=== PATIENT | female | born 1965 | race Caucasian/White ===

== ENCOUNTER → 2017-02-22 | Outpatient (CLI) | payer OTHER | LOC: FIMAGING 11:59 | PROVIDERS: ATTEND Family Medicine | DX: Z12.31 Encounter for screening mammogram for malignant neoplasm of breast (principal) | CPT/HCPCS: G0202 ==

== ENCOUNTER 2017-04-25 13:22 | Emergency (ER) | payer OTHER ==
[2017-04-25 13:28] VITALS: TEMP 97.9
--- NOTE | 2017-04-25 14:10 | CPEKG ---
Heart Rate: 93 RR Interval: 645 P-R Interval: 132 QRSD Interval: 70 QT Interval: 340 QTC Interval: 423 P Cornelius: 70 QRS Cornelius: 51 T Wave Cornelius: 33 EKG Severity - NORMAL ECG - EKG Impression: SINUS RHYTHM Electronically Signed By: Gaurav Mcdonald 26-Apr-2017 00:13:57
[2017-04-25 14:59] VITALS: RESP 16
--- NOTE | 2017-04-25 15:12 | EDPHY ---
H & P Stated Complaint: Elevated heart rate for 4 hours. Time Seen by Provider: 04/25/17 15:09 HPI/ROS: CHIEF COMPLAINT: Palpitations HISTORY OF PRESENT ILLNESS: The patient presents the emergency department with palpitations characterized as a tachycardia which occurred while at rest at a meeting. The patient reportedly went to a grocery store and had her blood pressure checked on a machine and reportedly had a heart rate of 187. Patient reports she tried to measure her own heart rate however was unable to because it was beating too fast. The patient's symptoms have since resolved. She denies any shortness of breath, pleuritic chest pain, prior history of arrhythmia. The patient takes no medications. She denies excessive stimulant use or other acute complaints. REVIEW OF SYSTEMS: A comprehensive 10 point review of systems is otherwise negative aside from elements mentioned in the history of present illness. Source: Patient Exam Limitations: No limitations - Personal History LMP (Females 10-55): 1-7 Days Ago Current Tetanus Diphtheria and Acellular Pertussis (TDAP): Yes - Medical/Surgical History Hx Asthma: No Hx Chronic Respiratory Disease: No Hx Diabetes: No Hx Cardiac Disease: No Hx Renal Disease: No Hx Cirrhosis: No Hx Alcoholism: No Hx HIV/AIDS: No Hx Splenectomy or Spleen Trauma: No Other PMH: Denies - Social History Smoking Status: Never smoked - Physical Exam Exam: General Appearance: Alert, no distress Eyes: Pupils equal and round no pallor or injection ENT, Mouth: Mucous membranes moist Respiratory: There are no retractions, lungs are clear to auscultation Cardiovascular: Regular rate and rhythm Gastrointestinal: Abdomen is soft and nontender, no masses, bowel sounds normal Neurological: A&O, normal motor function, normal sensory exam, normal cranial nerves Skin: Warm and dry, no rashes Musculoskeletal: Neck is supple nontender Extremities: symmetrical, full range of motion Constitutional: Initial Vital Signs Temperature (C) 36.6 C 04/25/17 13:23 Heart Rate 113 H 04/25/17 13:23 Respiratory Rate 18 04/25/17 13:23 Blood Pressure 122/89 H 04/25/17 13:23 O2 Sat (%) 100 04/25/17 13:23 O2 Delivery Mode Room Air Allergies/Adverse Reactions: enviromental Allergy (Uncoded 04/25/17 13:28) Home Medications: Medication Instructions Recorded NK [No Known Home Meds] 04/25/17 Medical Decision Making - Diagnostics EKG Interpretation: EKG: Complete interpretation has been separately recorded in the [employer] archive. Summary impression: Sinus rhythm, rate 93 ED Course/Re-evaluation: The patient was placed on a threat monitoring analyst and observed for an hour and half without any obvious arrhythmia. I reviewed the patient's past medical records and see that she had a normal TSH performed within the past several weeks. The patient did have an indeterminately elevated troponin of 0.07. The patient did undergo an echocardiogram which demonstrated no obvious structural abnormality. This was reviewed and discussed with Dr. Sanchez Sandoval from Cardiology. Dr. Sandoval did evaluate the patient in the emergency department is recommend discharge to home. The patient did undergo serial examinations in the emergency department. She has no evidence of anemia or metabolic dysfunction. Her D-dimer is negative which I feel adequately excludes pulmonary embolism. The patient will follow up with Dr. Sandoval tomorrow an outpatient for a Holter monitor. She is discharged home with customary aftercare instructions and return precautions. Differential Diagnosis: Differential diagnosis considered includes acute coronary syndrome, dehydration , metabolic abnormality, SVT, atrial fibrillation - Data Points Laboratory Results: 04/25/17 04/25/17 14:50 14:50 D-Dimer 0.46 ug/mLFEU ug/mLFEU (0.00-0.50) Troponin I 0.070 ng/mL H ng/mL (0.000-0.034) Departure - Departure Disposition: Home, Routine, Self-Care Clinical Impression: Palpitations Condition: Good Instructions: Heart Palpitations (ED) Additional Instructions: 1. Please follow up with Cardiology for a follow-up visit. 2. Return to the ED for recurrent palpitations, chest pain, difficulty breathing or other concerns. Referrals: Sanchez Sandoval MD [Medical Doctor] - As per Instructions
--- NOTE | 2017-04-25 16:48 | ECHO ---
[email or web address] [address] [address]: [phone] Fax: Transthoracic Echocardiogram Name: LISBET HOUSTON MR#: [id number] Study Date: 04/25/2017 Study Time: 03:59 PM Date of : 1965 Age: 52 year(s) Height: 157.5 cm (62 in.) Weight: 52.16 kg (115 lb.) BSA: 1.51 m2 Gender: Female Examination: Echo Indication: palpitations with indeterminately elevated troponin Image Quality: Adequate Contrast: Requested by: Gaurav Mcdonald BP: 132 mmHg/104 mmHg Heart Rate: 88 bpm Rhythm: Normal sinus rhythm Indication: palpitations with indeterminately elevated troponin Procedure Staff Animal Nutrition Teacher: Alice Bush [facility] Reading Physician: Sanchez Sandoval MD Requesting Provider: Conclusions: No pericardial effusion. Normal left ventricular systolic function. No regional wall motion abnormalities. No Doppler or 2D evidence of significant valvular heart disease. Measurements: Chambers Valvular Assessment AV/MV Valvular Assessment TV/PV Normal Normal Normal Name Value Range Name Value Range Name Value Range Ao Manisha (MM): 2.2 cm (2.2 cm-3.7 AV Vmax: 1.32 m/s (1 m/s-1.7 PV Vmax: 0.73 m/s (0.6 m/s-0.9 cm) m/s) m/s) IVSd (2D): 0.7 cm (0.6 cm-1.1 AV maxP mmHg ( - ) PV PGmax: 2 mmHg ( - ) cm) LVOT Vmax: 0.86 m/s (0.7 m/s-1.1 LVDd (2D): 3.4 cm (3.9 cm-5.3 m/s) cm) MV E Vmax: 0.57 m/s ( - ) LVDs (2D): 1.9 cm (2.1 cm-4 MV A Vmax: 0.41 m/s ( - ) cm) MV E/A: 1.39 ( - ) LVPWd (2D): 0.7 cm ( - ) LVEF (BP): 63 % (>=55 %) RVDd(2D): 2.9 cm (1.9 cm-3.8 cmmm) Continued Measurements: Chambers Valvular Assessment AV/MV Name Value Name Value LADs Lon.5 cm MV DecTime: 232 m/s LA Area: 12.5 cm2 MV E/E' Septal: 5.60 TAPSE: 1.7 cm MV E/E' Lateral: 4.30 Additional Vessels Patient: LISBET HOUSTON Study Date: 04/25/2017 Page 1 of 2 03:59 PM Name Value Ao Ascendin.7 cm Findings: Left Ventricle: Normal size left ventricle. No LV hypertrophy. Normal global systolic LV function. EF is 63 %. No regional wall motion abnormality. Normal diastolic LV function. Right Ventricle: Normal size right ventricle. Normal RV function. Left Atrium: The left atrium is normal in size. Right Atrium: The right atrium is normal in size. Mitral Valve: The mitral valve is normal in appearance and function. There is no mitral valve regurgitation. No mitral stenosis is present. Aortic Valve: The aortic valve is normal in appearance and function. There is no aortic valve regurgitation. No aortic valve stenosis is present. Tricuspid Valve: The tricuspid valve is normal in appearance and function. There is no tricuspid valve regurgitation. Pulmonary artery pressure is not obtained due to inadequate TR jet. Pulmonic Valve: Pulmonary valve not well visualized. There is no pulmonic regurgitation seen. Aorta: The aorta is normal. Normal size aortic root measuring 2.2 cm. Normal size ascending aorta measuring 2.7 cm. IVC: The IVC is normal sized. Pericardium: Trivial pericardial effusion. (No Signature Object) Patient: LISBET HOUSTON Study Date: 04/25/2017 Page 2 of 2 03:59 PM [id number]
[2017-04-25 17:09] VITALS: BP 146/96; PULSE 81; O2SAT 96
--- NOTE | 2017-04-25 17:30 | PDCONSULT ---
Cardiology Consult Reason for Consult: Palpitations Chief Complaint: Palpitations Requesting Physician: Tamara History of Present Illness: 52-year-old female no prior cardiovascular history in her usual state of good health today she was at a meeting. She developed the acute onset of palpitations. They are not associated with syncope or near syncope. She went to her primary care doctor's office who advised her to go to the emergency department. She went to a [facility] where she put a blood pressure cuff on and the device read her heart rate is 180+. She finally came to the emergency department by the time she got here heart rate slowed down. She has been observed without further dysrhythmia. She had no chest pain, PND, orthopnea. She had no syncope. She had no near syncope. Over the last 24 hours she has had a little more alcohol than usual with 3 cocktails last evening. No significant caffeine use. She takes no medications really She has otherwise been healthy with may be a mild fever but no chills, cough, abdominal pain, diarrhea, constipation. Laboratory Tests 04/25/17 04/25/17 14:50 14:50 D-Dimer 0.46 Troponin I 0.070 H Medications: None Allergies: None Physical Exam Physical Exam: - Physical Exam General Appearance: alert, no apparent distress EENT: PERRL/EOMI Neck: non-tender, supple Respiratory: chest non-tender, lungs clear, normal breath sounds Cardiac/Chest: normal peripheral pulses, regular rate, rhythm. No: edema, gallop, JVD Peripheral Pulses: 1+: carotid (R), carotid (L), femoral (R), femoral (L) Abdomen: normal bowel sounds, non-tender, soft Skin: warm/dry Lymphatic: no adenopathy Extremities: normal range of motion. No: pedal edema, calf tenderness Neuro/Psych: no motor/sensory deficits, alert Past Medical History PMH: - Personal History LMP (Females 10-55): 1-7 Days Ago Current Tetanus Diphtheria and Acellular Pertussis (TDAP): Yes - Medical/Surgical History Hx Asthma: No Hx Chronic Respiratory Disease: No Hx Cardiac Disease: No Hx Diabetes: No Hx Renal Disease: No Hx Alcoholism: No Hx Cirrhosis: No Hx HIV/AIDS: No Hx Splenectomy or Spleen Trauma: No Other PMH: Denies - Family History Significant Family History: No pertinent family hx - Social History Smoking Status: Never smoked Alcohol Use: Occasionally Additional Social History: Review of Systems Review of Systems: - Review of Systems Constitutional: fever. denies: chills, malaise, weakness EENTM: no symptoms reported Cardiac: palpitations. denies: chest pain, edema, irregular heart rate, lightheadedness, syncope Gastrointestinal/Abdominal: no symptoms reported Genitourinary: no symptoms Musculoskelatal: no symptoms Skin: no symptoms Neurological: no symptoms Hematologic/Lymphatic: no symptoms reported Immunologic/allergic: no symptoms reported A/P Assessment: Impression: Single episode of self-limited palpitations associated with symptomatic heart rate above 180 beats per minute. Echocardiogram shows normal cardiac function. EKG does not show any abnormalities. Telemetry monitoring is show no dysrhythmia. This has been associated with potentially a mild lower illness with potentially low-grade fever and a little bit extra alcohol last evening. Query holiday heart. Recommendations are from discharge the emergency department with a prescription for stat EKG. Outpatient evaluation in the next 2-3 weeks. Alive core to document dysrhythmia if possible. Complete metabolic evaluation including TSH prior to discharge.
== END 2017-04-25 17:37 | disposition home or self-care (01) ==
DX: R00.2 Palpitations (principal)

== ENCOUNTER → 2018-02-23 | Outpatient (CLI) | payer OTHER | LOC: FIMAGING 13:16 | PROVIDERS: ATTEND Family Medicine | DX: Z12.31 Encounter for screening mammogram for malignant neoplasm of breast (principal) ==